=== PATIENT | male | born 1995 | race Two or more races ===

== ENCOUNTER 2019-06-27 15:19 | Inpatient (IN) | payer OTHER ==
[~2019-06-27] VITALS: Ht 172.7 cm; Wt 65.8 kg
[2019-07-05] MEDS ORDERED: ATIVAN1 M1 PO (08:51)
[2019-07-05] MEDS ORDERED: DEPAKOTE ER500 MG PO (08:51)
[2019-07-16] MEDS ORDERED: OXYC1TAB9 PO (12:48)
[2019-07-16] MEDS ORDERED: DIBUCAINE30 GM RECTAL (12:49)
[2019-07-16] MEDS ORDERED: INTESTINEX680 M1 PO (12:49)
[2019-07-16] MEDS ORDERED: MIRALAX17 GM PO (12:50)
== END 2019-07-16 13:33 | disposition home or self-care (01) | DRG 333 ==
LOC: SURG 07-05 07:30 → SURH 07-12 07:30 → SURG 07-12 07:30 → O/R 07-12 07:30 → SURH 07-12 17:20
PROVIDERS: ADMIT Surgery
PROC: 0KXM0ZZ Transfer Perineum Muscle, Open Approach (ICD-10-PCS; 2019-07-12)
PROC: 0DTP7ZZ Resection of Rectum, Via Natural or Artificial Opening (ICD-10-PCS; principal; 2019-07-12 07:00)
DX: K62.3 Rectal prolapse (principal); F84.0 Autistic disorder; R15.9 Full incontinence of feces

== ENCOUNTER 2019-07-11 11:11 | Outpatient (CLI) | payer OTHER ==
[~2019-07-11 11:11] MED LIST: ATIVAN1 M1 PO; DEPAKOTE ER500 MG PO
== END 2019-07-11 11:17 | disposition home or self-care (01) ==
LOC: RAD 11:11
DX: Z01.810 Encounter for preprocedural cardiovascular examination (principal)

== ENCOUNTER 2022-08-01 16:42 | Inpatient (IN) | payer OTHER ==
[~2022-08-01] VITALS: Ht 177.8 cm; Wt 68.0 kg
[~2022-08-01 16:42] MED LIST changes: +DIBUCAINE30 GM RECTAL; +INTESTINEX680 M1 PO; +MIRALAX17 GM PO; +OXYC1TAB9 PO
[2022-08-05] MEDS ORDERED: DEPAKOTE ER500 MG PO (12:45)
[2022-08-05] MEDS ORDERED: ATIVAN PO (12:46)
[2022-08-08] MEDS ORDERED: TRAZODONE HCL50 MG (11:52)
[2022-08-08] MEDS ORDERED: FAMOTIDINE20 MG (11:52)
[2022-08-08] MEDS ORDERED: QUETIAPINE FUM400 MG (11:52)
[2022-08-10] MEDS ORDERED: DIBUCAINE30 GM RECTAL (13:50)
== END 2022-08-10 15:07 | disposition home or self-care (01) | DRG 333 ==
LOC: SURG 08-08 07:00 → SURH 08-08 07:14 → O/R 08-08 07:14 → SURG 08-08 09:15 → SURH 08-08 14:08
PROVIDERS: ADMIT Surgery; ATTEND Surgery
PROC: 0DBNFZZ Excision of Sigmoid Colon, Via Natural or Artificial Opening With Percutaneous Endoscopic Assistance (ICD-10-PCS; 2022-08-08)
PROC: 0DQR0ZZ Repair Anal Sphincter, Open Approach (ICD-10-PCS; 2022-08-08)
PROC: 0DBP4ZZ Excision of Rectum, Percutaneous Endoscopic Approach (ICD-10-PCS; principal; 2022-08-08 07:00)
DX: K62.3 Rectal prolapse (principal); F84.0 Autistic disorder; R15.9 Full incontinence of feces; Z20.822 Contact with and (suspected) exposure to COVID-19